=== PATIENT | male | born 1995 | race Asian ===

== ENCOUNTER 2021-11-10 07:56 | Outpatient (REF) | payer MEDICAID, SELFPAY ==
--- NOTE | 2021-11-10 08:02 | EEG_ITS ---
This is a 16-channel portable EEG performed in ICU. The patient is unresponsive during the tracing. Background EEG rhythm is low amplitude, slow alpha to theta range with no obvious asymmetry or paroxysmal tendency. No sharp wave or spikes were noted. Cardiac lead does not reveal any significant abnormality. Photic stimulation does not produce any driving. Hyperventilation is not performed. IMPRESSION: Generalized slowing with no evidence of seizure disorder or focal pathology. MD MACO Coyle/[facility] / [id number]
== END 2021-11-10 07:57 | disposition home or self-care (01) ==
LOC: HO.NEURO 07:56
PROVIDERS: PCP Hospitalist; Visit Provider Hospitalist
DX: G93.1 Anoxic brain damage, not elsewhere classified (principal); T71.162S Asphyxiation due to hanging, intentional self-harm, sequela; H47.619 Cortical blindness, unspecified side of brain; R48.2 Apraxia; R27.0 Ataxia, unspecified; M62.81 Muscle weakness (generalized); R13.12 Dysphagia, oropharyngeal phase; G31.84 Mild cognitive impairment of uncertain or unknown etiology; N31.9 Neuromuscular dysfunction of bladder, unspecified
CPT/HCPCS: 95816

== ENCOUNTER 2021-11-21 11:45 | Outpatient (REF) | payer MEDICAID, SELFPAY ==
--- NOTE | ~2021-11-21 | MR_ITS ---
EXAMINATION: MR BRAIN WITHOUT CONTRAST CLINICAL INFORMATION: Anoxic brain damage. COMPARISON: None available. TECHNIQUE: Multiplanar, multisequence imaging of the brain was performed without intravenous contrast. FINDINGS: There is no acute infarction, hemorrhage, mass, or extra-axial fluid collection. There is mild to moderate degree of diffuse brain parenchymal volume loss, unexpected for patient's age. The parenchymal signal is difficult to evaluate due to the degree of motion artifact. Focal encephalomalacia seen in the bilateral paramedian occipital lobes. There is no hydrocephalus. The major arterial flow voids are preserved at the skull base. The extracranial structures are within normal limits. MR/MR head/brain wo con IMPRESSION: No acute infarct, mass lesion, intracranial hemorrhage, or evidence of hydrocephalus. Diffuse brain parenchymal volume loss and focal encephalomalacia in the bilateral paramedian occipital lobes likely reflecting sequela of remote injury.
--- NOTE | ~2021-11-21 | XR_ITS ---
EXAMINATION: CHEST, KUB, PELVIS AND SKULL. CLINICAL INFORMATION: Pre-MRI evaluation for radiopaque foreign body. COMPARISON: None TECHNIQUE: Chest one view. KUB and pelvis one view. Skull to views. FINDINGS: Chest: The lungs are well-expanded and clear. Heart size and pulmonary vascularity is normal. There is no radiopaque foreign body. No bony abnormality. KUB: There is scattered stool in the colon without distention. No radiopaque foreign body, radiopaque calculi or organomegaly. No gross bony abnormality. SKULL: There is no radiopaque foreign body seen in the orbits or the skull. Visualized paranasal sinuses and mastoid air cells are well aerated. Small radiopaque rings in the back of the and neck may represent hair bands. The scalp soft tissues are normal. XR/XR pre mri screening IMPRESSION: No radiopaque foreign body seen in the chest, abdomen or the skull except for small radiopaque rings in the posterior neck question hair bands.
== END 2021-11-21 11:46 | disposition home or self-care (01) ==
LOC: HO.MRI 11:45
PROVIDERS: PCP Hospitalist; Visit Provider Hospitalist
DX: G93.1 Anoxic brain damage, not elsewhere classified (principal)
CPT/HCPCS: 70551

== ENCOUNTER → 2022-01-23 10:33 | Outpatient (REF) | payer MEDICAID, SELFPAY | LOC: HO.SL 10:33 | PROVIDERS: PCP Hospitalist; Visit Provider Hospitalist | DX: Z13.89 Encounter for screening for other disorder (principal) ==